=== PATIENT | female | born 1960 | race Caucasian/White ===

== ENCOUNTER 2017-06-04 18:31 | Emergency (ER) | payer MEDICAID ==
[~2017-06-04] VITALS: Ht 152.4 cm; Wt 85.0 kg
[~2017-06-04 18:31] MED LIST: ACET500T71 PO; ATOR20TA9 PO; HYDR-3240 PO; HYDR12.53 PO; HYDR473S47 PO; METF500T4 PO; OMEP-110 PO; ONDA4TAB10 PO; OXYC10TA6 PO; PROP20TA PO; SIMV20TA3 PO; TRAM50TA2 PO; [UNRECOGNIZED DRUG - OTHER]
[2017-06-04] MEDS ORDERED: HYDROcodone/APAP 5/325 TABLET ONE (18:56)
[2017-06-04] MEDS ORDERED: IBUPROFEN 200 MG TABLET ONE (18:56)
[2017-06-04] MEDS ORDERED: HYDROcodone/APAP 5/325 TABLET PO ONE (19:00)
[2017-06-04] MEDS ORDERED: IBUPROFEN 200 MG TABLET PO ONE (19:00)
[2017-06-04 20:01] VITALS: BP 147/81
== END 2017-06-04 21:48 | disposition home or self-care (01) ==
LOC: ED 20:36
DX: S33.5XXA Sprain of ligaments of lumbar spine, initial encounter (principal); S23.3XXA Sprain of ligaments of thoracic spine, initial encounter; S83.91XA Sprain of unspecified site of right knee, initial encounter; S93.401A Sprain of unspecified ligament of right ankle, initial encounter; S76.211A Strain of adductor muscle, fascia and tendon of right thigh, initial encounter; I10 Essential (primary) hypertension; E11.9 Type 2 diabetes mellitus without complications; E78.5 Hyperlipidemia, unspecified; E78.00 Pure hypercholesterolemia, unspecified; W01.0XXA Fall on same level from slipping, tripping and stumbling without subsequent striking against object, initial encounter; Y93.89 Activity, other specified; Y92.511 Restaurant or cafe as the place of occurrence of the external cause; Y99.9 Unspecified external cause status
CPT/HCPCS: 72072; 72110; 72220; 73523; 99284

== ENCOUNTER 2017-10-13 19:58 | Emergency (ER) | payer SELFPAY ==
[~2017-10-13] VITALS: Ht 152.4 cm; Wt 83.4 kg
[2017-10-13] MEDS ORDERED: DIAZEPAM 5 MG TABLET PO STA (20:29)
[2017-10-13] MEDS ORDERED: IBUPROFEN 200 MG TABLET PO ONE (20:30)
[2017-10-13] MEDS ORDERED: DIAZEPAM 5 MG TABLET ONE (20:40)
[2017-10-13] MEDS ORDERED: IBUPROFEN 200 MG TABLET ONE (20:40)
[2017-10-13 20:47] LABS: HEMATOCRIT 42.3 % (34.6-47.8); HEMOGLOBIN 14.2 g/dL (11.7-16.4); WHITE BLOOD COUNT 8.8 x10^3/uL (3.4-10)
[2017-10-13 20:57] LABS: BLOOD UREA NITROGEN 20 mg/dL (7-18)
[2017-10-13 21:02] LABS: IS PT STATUS REG ER OR PRE ER? YES
[2017-10-13 21:50] VITALS: BP 131/73
== END 2017-10-13 21:51 | disposition home or self-care (01) ==
LOC: ED 21:05
DX: S16.1XXA Strain of muscle, fascia and tendon at neck level, initial encounter (principal); M54.12 Radiculopathy, cervical region; E78.00 Pure hypercholesterolemia, unspecified; Z88.5 Allergy status to narcotic agent; X58.XXXA Exposure to other specified factors, initial encounter; Y93.89 Activity, other specified; Y92.89 Other specified places as the place of occurrence of the external cause; Y99.8 Other external cause status
CPT/HCPCS: 36415; 71010; 72050; 80048; 82040; 84484; 85025; 93005; 99285

== ENCOUNTER 2018-09-23 16:52 | Observation (INO) | payer MEDICAID ==
[~2018-09-23] VITALS: Ht 152.4 cm; Wt 87.2 kg
[~2018-09-23 16:52] MED LIST changes: +METF500T17 PO; -METF500T4 PO
[2018-09-23] MEDS ORDERED: NITROGLYCERIN SINGLE TAB 0.4 MG SL ONE ×2 (18:27→19:05)
[2018-09-23] MEDS ORDERED: MAALOX/HYOSCYAMINE/LIDOCAINE 45 ML BTL ONE (18:27)
[2018-09-23] MEDS ORDERED: MAALOX/HYOSCYAMINE/LIDOCAINE 45 ML BTL PO ONE (18:30)
[2018-09-23] MEDS ORDERED: ASPIRIN 81 MG TABLET CHEW PO ONE (18:30)
[2018-09-23] MEDS ORDERED: NITROGLYCERIN SINGLE TAB 0.4 MG SL PRN (18:30)
[2018-09-23] MEDS ORDERED: ONDANSETRON ODT 4 MG ONE (18:49)
[2018-09-23] MEDS ORDERED: MORPHINE SULFATE 4 MG/ML, 1ML ONE (18:49)
[2018-09-23] MEDS ORDERED: ASPIRIN 81 MG TABLET CHEW ONE (18:50)
[2018-09-23 18:58] LABS: BASOPHILS # (AUTO) 0.06 x10^3/uL (0-0.1); BASOPHILS % (AUTO) 1 % (0-1); EOSINOPHILS % (AUTO) 1 % (1-7); LYMPHOCYTES # (AUTO) 2.24 x10^3/uL (1-3.4); LYMPHOCYTES % (AUTO) 24 % (22-44); MD NO; MEAN CORPUSCULAR HEMOGLOBIN 32.1 pg (27.0-34.8); MEAN CORPUSCULAR HGB CONC 33.4 g/dL (32.4-35.8); MEAN CORPUSCULAR VOLUME 96.1 fL (80-100); MEAN PLATELET VOLUME 9.4 fL (7.4-10.4); MONOCYTES # (AUTO) 0.67 x10^3/uL (0.2-0.8); MONOCYTES % (AUTO) 7 % (2-9); NEUTROPHILS # (AUTO) 6.13 x10^3/uL (1.8-6.8); NEUTROPHILS % (AUTO) 67 % (42-75); PLATELET COUNT 281 x10^3/uL (130-400); RED BLOOD COUNT 4.24 x10^6/uL (3.82-5.3); RED CELL DISTRIBUTION WIDTH 13.6 % (9.6-15.2)
[2018-09-23] MEDS ORDERED: ASPIRIN 81 MG TABLET EC PO ONE (19:04)
[2018-09-23 19:09] LABS: ALANINE AMINOTRANSFERASE 18 U/L (12-78); ALBUMIN 3.3 g/dL (3.4-5.0); ANION GAP 8 mmol/L (5-15); CALCIUM 8.8 mg/dL (8.5-10.1); CHLORIDE 104 mmol/L (98-107); CREATININE 1.09 mg/dL (0.55-1.02)
[2018-09-23 19:13] LABS: ALKALINE PHOSPHATASE 83 U/L (45-117); BILIRUBIN,TOTAL 0.3 mg/dL (0.2-1.0); TOTAL PROTEIN 7.4 g/dL (6.4-8.2); TROPONIN I < 0.015 ng/mL (0.000-0.045)
[2018-09-23] MEDS ORDERED: SODIUM CHLORIDE 0.9% 1,000 ML IV SCH (20:36)
[2018-09-23 20:47] VITALS: BP 137/81
[2018-09-23] MEDS ORDERED: ONDANSETRON 2MG/ML, 2ML IVPush PRN (21:00)
[2018-09-23] MEDS ORDERED: KETOROLAC 30 MG/1 ML IV PRN (21:00)
[2018-09-23] MEDS ORDERED: POLYETHYLENE GLYCOL 17 GM PACKET PO PRN (21:00)
[2018-09-23] MEDS ORDERED: GUAIFENESIN/DM 200-20MG, 10ML UDC PO PRN (21:00)
[2018-09-23] MEDS ORDERED: ACETAMINOPHEN 325 MG TABLET PO PRN (21:00)
[2018-09-23] MEDS ORDERED: ATORVASTATIN 20 MG TABLET PO SCH (21:00)
[2018-09-23] MEDS ORDERED: NITROGLYCERIN 0.4 MG BOTTLE (25 TABS) SL PRN ×2 (21:00→23:30)
[2018-09-23] MEDS: PROPRANOLOL 10 MG TABLET PO SCH (22:35)
[2018-09-23 22:55] VITALS: BP 114/70
[2018-09-23] MEDS ORDERED: NITROGLYCERIN 0.4 MG/SPRAY SL PRN (23:30)
[2018-09-24 03:37] VITALS: BP 100/67
[2018-09-24 05:36] LABS: CHOLESTEROL, TOTAL 137 mg/dL (140-239); HDL CHOL % 34 % (28-40); HDL CHOLESTEROL (DIRECT) 46 mg/dL (40-60); LDL CHOLESTEROL,CALCULATED 63 mg/dL (54-169); LDL/HDL RATIO 1.4 (0.5-3.0); TRIGLYCERIDES 142 mg/dL (50-200); TROPONIN I < 0.015 ng/mL (0.000-0.045); VLDL CHOLESTEROL 28 mg/dL (0-25)
[2018-09-24 07:30] VITALS: BP 102/67
[2018-09-24] MEDS ORDERED: OMEPRAZOLE 20 MG CAPSULE.DR PO SCH (07:30)
[2018-09-24] MEDS ORDERED: REGADENOSON 0.4 MG/5 ML SYRINGE ONE (07:47)
[2018-09-24] MEDS ORDERED: HYDROCHLOROTHIAZIDE 12.5 MG CAPSULE PO SCH (09:00)
[2018-09-24] MEDS ORDERED: OMNIPAQUE 350 MG/ML, 100ML BOTTLE ONE (12:02)
[2018-09-24] MEDS: PROPRANOLOL 10 MG TABLET PO SCH (12:19)
[2018-09-24 13:08] LABS: TROPONIN I < 0.015 ng/mL (0.000-0.045)
[2018-09-24 13:38] VITALS: BP 128/91
== END 2018-09-24 18:36 | disposition home or self-care (01) ==
LOC: ED 19:44 → UNDOADMOB 19:56 → EDIP 19:56 → INTOOBSV 19:56 → SUATTDRO 20:34 → EDIP 20:36 → 5SO 22:14 → UNDODISOB 09-24 18:36
PROVIDERS: ADMIT Hospitalist; ATTEND Hospitalist
DX: R07.2 Precordial pain (principal); I10 Essential (primary) hypertension; E78.5 Hyperlipidemia, unspecified; E78.00 Pure hypercholesterolemia, unspecified; J45.909 Unspecified asthma, uncomplicated; K21.9 Gastro-esophageal reflux disease without esophagitis; Z82.49 Family history of ischemic heart disease and other diseases of the circulatory system; Z88.8 Allergy status to other drugs, medicaments and biological substances; Z79.899 Other long term (current) drug therapy
CPT/HCPCS: 36415; 71045; 71275; 76700; 78452; 80053; 80061; 83605; 83690; 84484; 85025; 85379; 93005; 93017; 99285; A9502; C9898; G0378; J2785; J7030; Q9967

== ENCOUNTER 2019-04-14 09:08 | Emergency (ER) | payer MEDICAID ==
[~2019-04-14] VITALS: Ht 152.4 cm; Wt 91.2 kg
[~2019-04-14 09:08] MED LIST changes: +ATOR20TA37 PO; -ATOR20TA9 PO; +HYDR12.517 PO; -HYDR12.53 PO
[2019-04-14] MEDS ORDERED: ALBUTEROL/IPRATROPIUM 2.5MG/0.5MG, 3 ML ONE (09:50)
[2019-04-14] MEDS ORDERED: ALBUTEROL/IPRATROPIUM 2.5MG/0.5MG, 3 ML NPPB ONE (10:00)
[2019-04-14] MEDS ORDERED: ACETAMINOPHEN 325 MG TABLET ONE (11:05)
[2019-04-14] MEDS ORDERED: ACETAMINOPHEN 325 MG TABLET PO ONE (11:30)
[2019-04-14 12:09] VITALS: BP 149/63
== END 2019-04-14 12:11 | disposition home or self-care (01) ==
LOC: ED 10:14
DX: J06.9 Acute upper respiratory infection, unspecified (principal); I10 Essential (primary) hypertension; E11.9 Type 2 diabetes mellitus without complications; E78.00 Pure hypercholesterolemia, unspecified; E78.5 Hyperlipidemia, unspecified
CPT/HCPCS: 71046; 94640; 99283; J7620

== ENCOUNTER 2019-05-01 17:08 | Emergency (ER) | payer MEDICAID ==
[~2019-05-01] VITALS: Ht 152.4 cm; Wt 89.4 kg
[2019-05-01 17:17] VITALS: BP 126/78
--- NOTE | 2019-05-01 18:05 | NUR ---
LAB AT BEDSIDE
[2019-05-01 18:26] LABS: BASOPHILS # (AUTO) 0.04 x10^3/uL (0-0.1); BASOPHILS % (AUTO) 1 % (0-1); EOSINOPHILS # (AUTO) 0.13 x10^3/uL (0-0.4); EOSINOPHILS % (AUTO) 2 % (1-7); LYMPHOCYTES # (AUTO) 2.84 x10^3/uL (1-3.4); LYMPHOCYTES % (AUTO) 36 % (22-44); MD NO; MEAN CORPUSCULAR HEMOGLOBIN 32.1 pg (27.0-34.8); MEAN CORPUSCULAR HGB CONC 32.8 g/dL (32.4-35.8); MEAN CORPUSCULAR VOLUME 97.6 fL (80-100); MEAN PLATELET VOLUME 9.3 fL (7.4-10.4); MONOCYTES # (AUTO) 0.64 x10^3/uL (0.2-0.8); MONOCYTES % (AUTO) 8 % (2-9); NEUTROPHILS # (AUTO) 4.33 x10^3/uL (1.8-6.8); NEUTROPHILS % (AUTO) 54 % (42-75); PLATELET COUNT 290 x10^3/uL (130-400); RED BLOOD COUNT 4.39 x10^6/uL (3.82-5.3); RED CELL DISTRIBUTION WIDTH 14.2 % (9.6-15.2)
[2019-05-01 18:30] LABS: ALANINE AMINOTRANSFERASE 23 U/L (12-78); ALBUMIN 3.4 g/dL (3.4-5.0); ANION GAP 4 mmol/L (5-15); CALCIUM 8.8 mg/dL (8.5-10.1); CHLORIDE 106 mmol/L (98-107); CREATININE 0.98 mg/dL (0.55-1.02)
[2019-05-01 18:34] LABS: ALKALINE PHOSPHATASE 79 U/L (45-117); BILIRUBIN,TOTAL 0.3 mg/dL (0.2-1.0); TOTAL PROTEIN 7.4 g/dL (6.4-8.2); TROPONIN I < 0.015 ng/mL (0.000-0.045)
--- NOTE | 2019-05-01 19:10 | NUR ---
PROVIDER WORKING UP DISPO PATIENT CONTINUES TO REPORT INTERMITTENT LUMBA PAIN/PAIN W/ COUGH
== END 2019-05-01 19:23 | disposition home or self-care (01) ==
LOC: ED 18:26
DX: S39.012A Strain of muscle, fascia and tendon of lower back, initial encounter (principal); S29.012A Strain of muscle and tendon of back wall of thorax, initial encounter; J20.8 Acute bronchitis due to other specified organisms; I10 Essential (primary) hypertension; E78.00 Pure hypercholesterolemia, unspecified; E11.9 Type 2 diabetes mellitus without complications; E78.5 Hyperlipidemia, unspecified; Z88.5 Allergy status to narcotic agent; X58.XXXA Exposure to other specified factors, initial encounter; Y93.89 Activity, other specified; Y92.89 Other specified places as the place of occurrence of the external cause; Y99.8 Other external cause status
CPT/HCPCS: 36415; 71046; 72072; 72110; 80053; 84484; 85025; 99284

== ENCOUNTER 2020-02-14 17:23 | Emergency (ER) | payer MEDICAID ==
[~2020-02-14] VITALS: Ht 152.4 cm; Wt 90.8 kg
[~2020-02-14 17:23] MED LIST changes: +ACET500T64 PO; -ACET500T71 PO; +SIMV20TA19 PO; -SIMV20TA3 PO
--- NOTE | 2020-02-14 17:40 | NUR ---
PT CAME IN CO OF SORE THROAT, HORSE VOICE, CHEST PAIN, AND SOB FOR 3 DAYS. NO FEVER IN TRIAGE. FLU SWAB HAS BEEN TAKEN. IS BEDSIDE. PT IS HOOKED UP TO DIRECTOR OF LITIGATION. 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 CALL LIGHT WITHIN REACH.
[2020-02-14 18:15] LABS: RAPID INFLUENZA A Negative (Negative); RAPID INFLUENZA B Negative (Negative)
--- NOTE | 2020-02-14 18:25 | NUR ---
PT RESTING IN [facility]. WARM BLANKET PROVIDED. VSS. ANDRADE.
[2020-02-14 19:17] VITALS: BP 152/83
== END 2020-02-14 19:19 | disposition home or self-care (01) ==
LOC: ED 19:05
DX: J20.9 Acute bronchitis, unspecified (principal); E11.9 Type 2 diabetes mellitus without complications; E78.5 Hyperlipidemia, unspecified; I10 Essential (primary) hypertension; E78.00 Pure hypercholesterolemia, unspecified; M19.90 Unspecified osteoarthritis, unspecified site
CPT/HCPCS: 71045; 87400; 93005; 99285

== ENCOUNTER 2020-06-15 21:40 | Emergency (ER) | payer MEDICAID ==
[~2020-06-15] VITALS: Ht 157.5 cm; Wt 85.8 kg
--- NOTE | 2020-06-15 21:57 | NUR ---
EKG DONE IN TRIAGE
[2020-06-15] MEDS ORDERED: SODIUM CHLORIDE FLUSH 10ML SYR IVF ONE (22:00)
[2020-06-15 22:23] LABS: BASOPHILS # (AUTO) 0.04 x10^3/uL (0-0.1); BASOPHILS % (AUTO) 1 % (0-1); EOSINOPHILS # (AUTO) 0.02 x10^3/uL (0-0.4); EOSINOPHILS % (AUTO) 0 % (1-7); LYMPHOCYTES # (AUTO) 1.83 x10^3/uL (1-3.4); LYMPHOCYTES % (AUTO) 30 % (22-44); MD NO; MEAN CORPUSCULAR HEMOGLOBIN 31.4 pg (27.0-34.8); MEAN CORPUSCULAR HGB CONC 32.9 g/dL (32.4-35.8); MEAN PLATELET VOLUME 8.8 fL (7.4-10.4); MONOCYTES # (AUTO) 0.49 x10^3/uL (0.2-0.8); MONOCYTES % (AUTO) 8 % (2-9); NEUTROPHILS # (AUTO) 3.74 x10^3/uL (1.8-6.8); NEUTROPHILS % (AUTO) 61 % (42-75); PLATELET COUNT 207 x10^3/uL (130-400); RED BLOOD COUNT 4.25 x10^6/uL (3.82-5.3); RED CELL DISTRIBUTION WIDTH 14.7 % (9.6-15.2)
[2020-06-15 22:32] LABS: ALANINE AMINOTRANSFERASE 60 U/L (12-78); ALBUMIN 3.4 g/dL (3.4-5.0); ANION GAP 7 mmol/L (5-15); CALCIUM 8.3 mg/dL (8.5-10.1); CHLORIDE 104 mmol/L (98-107); CREATININE 1.05 mg/dL (0.55-1.02)
[2020-06-15 22:38] LABS: ALKALINE PHOSPHATASE 73 U/L (45-117); BILIRUBIN,TOTAL 0.2 mg/dL (0.2-1.0); TOTAL PROTEIN 7.4 g/dL (6.4-8.2); TROPONIN I < 0.015 ng/mL (0.000-0.045)
[2020-06-15] MEDS ORDERED: POTASSIUM CHLORIDE 20 MEQ TAB.ER.PRT PO ONE (23:00)
[2020-06-15] MEDS ORDERED: POTASSIUM CHLORIDE 20 MEQ TAB.ER.PRT ONE (23:09)
[2020-06-15] MEDS ORDERED: ACETAMINOPHEN 325 MG TABLET ONE (23:16)
[2020-06-15 23:20] VITALS: BP 118/63
[2020-06-15] MEDS ORDERED: ACETAMINOPHEN 325 MG TABLET PO ONE (23:30)
== END 2020-06-15 23:31 | disposition home or self-care (01) ==
LOC: ED 22:41
DX: U07.1 COVID-19 (principal); J12.89 Other viral pneumonia; J15.9 Unspecified bacterial pneumonia; J06.9 Acute upper respiratory infection, unspecified; R06.00 Dyspnea, unspecified; R50.9 Fever, unspecified; R94.31 Abnormal electrocardiogram [ECG] [EKG]; I10 Essential (primary) hypertension; E11.9 Type 2 diabetes mellitus without complications; E78.5 Hyperlipidemia, unspecified; E78.00 Pure hypercholesterolemia, unspecified; M19.90 Unspecified osteoarthritis, unspecified site; Z87.891 Personal history of nicotine dependence
CPT/HCPCS: 36415; 71045; 80053; 83880; 84484; 85025; 93005; 99285

== ENCOUNTER 2020-07-24 21:25 | Emergency (ER) | payer MEDICAID ==
[~2020-07-24] VITALS: Ht 152.4 cm; Wt 85.5 kg
[2020-07-24 21:34] VITALS: BP 137/71
[2020-07-24] MEDS ORDERED: IBUPROFEN 600 MG TABLET ONE (21:50)
[2020-07-24] MEDS ORDERED: IBUPROFEN 600 MG TABLET PO ONE (22:00)
== END 2020-07-24 23:24 | disposition home or self-care (01) ==
LOC: ED 22:40
DX: G43.C0 Periodic headache syndromes in child or adult, not intractable (principal); G89.29 Other chronic pain; M54.5 Low back pain; I10 Essential (primary) hypertension; E11.9 Type 2 diabetes mellitus without complications
CPT/HCPCS: 70450; 99284

== ENCOUNTER 2020-12-08 14:22 | Emergency (ER) | payer MEDICAID ==
[~2020-12-08] VITALS: Ht 152.4 cm; Wt 86.6 kg
--- NOTE | 2020-12-08 14:36 | NUR ---
HOME HEALTH REGISTERED NURSE [id number] USED FOR TRIAGE
[2020-12-08] MEDS ORDERED: NEOSPORIN OINT. PKT 1 PACKET ONE (14:51)
[2020-12-08] MEDS ORDERED: ACETAMINOPHEN 325 MG TABLET PO ONE (15:00)
--- NOTE | 2020-12-08 15:07 | NUR ---
pt presents to ED with c/o transient dizziness this pm, resulting in loss of balance where rt forehead and rt knee struck against metal object. pt states she did not fall to ground. pt denies dizzness at this time, c/o pain to right forehead and rt knee. slight abraision noted to rt forehead and rt knee, no hematoma present. pt is a&ox4, neuro intact, no drift, bilateral grasp equal. all monitors in place, nsr on property assessment monitor with no ectopy. pt denies cp. awaiting labs and dispo at this time.
[2020-12-08 15:25] LABS: BASOPHILS % (AUTO) 1 % (0-1); EOSINOPHILS % (AUTO) 2 % (1-7); LYMPHOCYTES % (AUTO) 33 % (22-44); MEAN CORPUSCULAR HGB CONC 33.6 g/dL (32.4-35.8); MEAN PLATELET VOLUME 8.9 fL (7.4-10.4); MONOCYTES % (AUTO) 9 % (2-9); NEUTROPHILS % (AUTO) 56 % (42-75); PLATELET COUNT 280 x10^3/uL (130-400); RED BLOOD COUNT 4.29 x10^6/uL (3.82-5.3); RED CELL DISTRIBUTION WIDTH 13.7 % (9.6-15.2)
[2020-12-08 15:28] LABS: ALANINE AMINOTRANSFERASE 30 U/L (12-78); ALBUMIN 3.6 g/dL (3.4-5.0); ANION GAP 2 mmol/L (5-15); CALCIUM 8.9 mg/dL (8.5-10.1); CHLORIDE 104 mmol/L (98-107); CREATININE 1.09 mg/dL (0.55-1.02)
[2020-12-08 15:31] LABS: ALKALINE PHOSPHATASE 88 U/L (45-117); BILIRUBIN,TOTAL 0.3 mg/dL (0.2-1.0); TOTAL PROTEIN 7.5 g/dL (6.4-8.2)
[2020-12-08 15:32] LABS: MD NO
[2020-12-08] MEDS ORDERED: ACETAMINOPHEN 500 MG TABLET ONE (15:50)
[2020-12-08] MEDS ORDERED: POTASSIUM CHLORIDE 20 MEQ TAB.ER.PRT ONE (15:50)
[2020-12-08] MEDS ORDERED: POTASSIUM CHLORIDE 20 MEQ TAB.ER.PRT PO ONE (16:00)
--- NOTE | 2020-12-08 16:09 | NUR ---
orthostatics completed and reviewed by RODRIGUEZ Perez, pt denies dizziness with position changes. pt a&o, resps even and unlabored, nsr on radiographer cardiac catheterization with no ectopy. MD jimbo ureña.
[2020-12-08 16:27] VITALS: BP 145/81
--- NOTE | 2020-12-08 16:28 | NUR ---
TASK RN: Patient/Caregiver given discharge instructions and they have confirmed that they understand the instructions. Patient ambulatory with steady gait.
== END 2020-12-08 16:29 | disposition home or self-care (01) ==
LOC: ED 15:40
DX: S00.81XA Abrasion of other part of head, initial encounter (principal); S80.211A Abrasion, right knee, initial encounter; R42 Dizziness and giddiness; R94.31 Abnormal electrocardiogram [ECG] [EKG]; I10 Essential (primary) hypertension; E11.9 Type 2 diabetes mellitus without complications; E78.5 Hyperlipidemia, unspecified; Z88.6 Allergy status to analgesic agent; W18.30XA Fall on same level, unspecified, initial encounter; Y93.89 Activity, other specified; Y92.098 Other place in other non-institutional residence as the place of occurrence of the external cause; Y99.8 Other external cause status
CPT/HCPCS: 36415; 80053; 85025; 93005; 99284

== ENCOUNTER 2021-02-23 23:13 | Emergency (ER) | payer MEDICAID ==
[~2021-02-23] VITALS: Ht 152.4 cm; Wt 87.7 kg
[~2021-02-23 23:13] MED LIST changes: +HYDR-1067 PO; -HYDR-3240 PO
--- NOTE | 2021-02-23 23:40 | NUR ---
PATIENT UPDATED ON PLAN OF CARE. NO NOTED FURTHER NEEDS AT THIS TIME. PATIENT PROVIDED URINE SPECIMEN, SENT TO LAB.
--- NOTE | 2021-02-23 23:56 | NUR ---
PT UPDATED ON PLAN OF CARE. NO NOTED NEEDS AT THIS TIME. VSS, WILL CONTINUE TO MONITOR.
[2021-02-24 00:03] LABS: BASOPHILS % (AUTO) 1 % (0-1); EOSINOPHILS % (AUTO) 2 % (1-7); LYMPHOCYTES % (AUTO) 39 % (22-44); MEAN CORPUSCULAR HEMOGLOBIN 32.2 pg (27.0-34.8); MEAN CORPUSCULAR HGB CONC 33.6 g/dL (32.4-35.8); MONOCYTES % (AUTO) 8 % (2-9); NEUTROPHILS % (AUTO) 51 % (42-75); PLATELET COUNT 286 x10^3/uL (130-400); RED BLOOD COUNT 4.26 x10^6/uL (3.82-5.3)
[2021-02-24 00:04] LABS: MD NO
[2021-02-24 00:13] LABS: ALANINE AMINOTRANSFERASE 27 U/L (12-78); ALBUMIN 3.4 g/dL (3.4-5.0); ANION GAP 5 mmol/L (5-15); CALCIUM 8.5 mg/dL (8.5-10.1); CHLORIDE 105 mmol/L (98-107); CREATININE 1.13 mg/dL (0.55-1.02)
[2021-02-24 00:18] LABS: ALKALINE PHOSPHATASE 85 U/L (45-117); BILIRUBIN,TOTAL 0.1 mg/dL (0.2-1.0); TOTAL PROTEIN 7.5 g/dL (6.4-8.2); TROPONIN I < 0.015 ng/mL (0.000-0.045)
--- NOTE | 2021-02-24 01:00 | NUR ---
REPORT FROM MELISSA SPEARS
[2021-02-24 01:06] VITALS: BP 140/80
--- NOTE | 2021-02-24 01:29 | NUR ---
Patient given discharge instructions and they have confirmed that they understand the instructions. Patient ambulatory with steady gait.
== END 2021-02-24 01:31 | disposition home or self-care (01) ==
LOC: ED 23:42
DX: S29.011A Strain of muscle and tendon of front wall of thorax, initial encounter (principal); R07.89 Other chest pain; M54.5 Low back pain; E11.9 Type 2 diabetes mellitus without complications; I10 Essential (primary) hypertension; E78.5 Hyperlipidemia, unspecified; R94.31 Abnormal electrocardiogram [ECG] [EKG]; X58.XXXA Exposure to other specified factors, initial encounter; Y93.89 Activity, other specified; Y92.89 Other specified places as the place of occurrence of the external cause; Y99.8 Other external cause status
CPT/HCPCS: 36415; 71045; 80053; 84484; 85025; 93005; 99285

== ENCOUNTER 2021-08-04 09:45 | Emergency (ER) | payer MEDICAID ==
[~2021-08-04] VITALS: Ht 160 cm; Wt 89.9 kg
[~2021-08-04 09:45] MED LIST changes: -HYDR-1067 PO; +HYDR-2214 PO
--- NOTE | 2021-08-04 09:56 | NUR ---
EKG DONE IN [facility].
--- NOTE | 2021-08-04 10:04 | NUR ---
PT PLACED ON ALL MONITORS. CALL LIGHT DREA. TBS.
[2021-08-04 10:46] LABS: BASOPHILS % (AUTO) 1 % (0-1); EOSINOPHILS % (AUTO) 2 % (1-7); LYMPHOCYTES % (AUTO) 32 % (22-44); MEAN CORPUSCULAR HEMOGLOBIN 31.5 pg (27.0-34.8); MEAN CORPUSCULAR HGB CONC 33.3 g/dL (32.4-35.8); MONOCYTES % (AUTO) 10 % (2-9); NEUTROPHILS % (AUTO) 55 % (42-75); PLATELET COUNT 245 x10^3/uL (130-400); RED BLOOD COUNT 4.28 x10^6/uL (3.82-5.3)
[2021-08-04 10:56] LABS: ALBUMIN 3.2 g/dL (3.4-5.0); ANION GAP 3 mmol/L (5-15); C-REACTIVE PROTEIN, QUANT 0.43 mg/dL (0.02-0.49); CALCIUM 8.8 mg/dL (8.5-10.1); CHLORIDE 106 mmol/L (98-107)
[2021-08-04 11:02] LABS: ALANINE AMINOTRANSFERASE 22 U/L (12-78); ALKALINE PHOSPHATASE 80 U/L (45-117); BILIRUBIN,TOTAL 0.3 mg/dL (0.2-1.0); CREATININE 0.86 mg/dL (0.55-1.02); TOTAL PROTEIN 7.3 g/dL (6.4-8.2); TROPONIN I < 0.015 ng/mL (0.000-0.045)
--- NOTE | 2021-08-04 11:33 | NUR ---
PT STATES TO RN THAT SHE HAD PREVIOUSLY HAD COVID AND IS VACCINATED. SH IS HERE FOR ASTHMA AND NOT COVID AND IS DECLINING THAT COVID TEST MD MADE AWARE.
[2021-08-04 11:50] VITALS: BP 154/81
== END 2021-08-04 12:32 | disposition home or self-care (01) ==
LOC: ED 11:27
DX: J45.901 Unspecified asthma with (acute) exacerbation (principal); R94.31 Abnormal electrocardiogram [ECG] [EKG]; I10 Essential (primary) hypertension; E11.9 Type 2 diabetes mellitus without complications; E78.5 Hyperlipidemia, unspecified; E78.00 Pure hypercholesterolemia, unspecified; M19.90 Unspecified osteoarthritis, unspecified site; Z88.0 Allergy status to penicillin; Z88.6 Allergy status to analgesic agent
CPT/HCPCS: 36415; 71045; 80053; 83605; 84145; 84484; 85025; 86140; 93005; 99285